=== PATIENT | male | born 1955 | race Caucasian/White ===

== ENCOUNTER 2017-06-02 07:27 | Emergency (ER) | payer SELFPAY ==
--- NOTE | 2017-06-02 07:44 | EDM.PDOC ---
ED HPI GENERAL MEDICAL PROBLEM - General Chief Complaint: Neurological Problem Stated Complaint: NUMBNESS; STROKE CODE Time Seen by Provider: 06/02/17 07:40 Source of Information: Reports: Patient History Limitations: Reports: No Limitations - History of Present Illness INITIAL COMMENTS - FREE TEXT/NARRATIVE: Patient is a 62-year-old gentleman who states that last night started complaining numbness in the left hand left feet progressively worsening apparently fell asleep and woke up with worsening symptoms was transported by private vehicle to the ER in [facility]. Initial evaluation noted drooping of the left side of the face which score him NIH score of 1 and this has not changed. Onset: Gradual Duration: Day(s):, Getting Worse Location: Reports: Face (Numbness around the lips), Upper Extremity, Left, Lower Extremity, Right Quality: Reports: Other (Numbness) Severity: Mild Improves with: Reports: None Worsens with: Reports: None Context: Reports: Other (Possible stroke:) Associated Symptoms: Reports: Headaches (On occasion no headaches now) Past Medical History Cardiovascular History: Reports: Afib Social & Family History - Tobacco Use Smoking Status *Q: Never Smoker ED ROS GENERAL - Review of Systems Review Of Systems: See Below Constitutional: Reports: Weakness, Decreased Appetite HEENT: Reports: Other (Perioral numbness decreased appetite for couple days) Respiratory: Reports: No Symptoms Cardiovascular: Reports: Palpitations, Other (History of atrial fibrillation) Endocrine: Reports: No Symptoms GI/Abdominal: Reports: Anorexia : Reports: No Symptoms Musculoskeletal: Reports: Other (Weakness negative drift) Skin: Reports: No Symptoms Neurological: Reports: Numbness (Perioral numbness left arm hand and foot) Psychiatric: Reports: No Symptoms Hematologic/Lymphatic: Reports: No Symptoms ( states he recently lost his Job has been lying in the sofa all day and drinks about a 5th of vodka a day.) ED EXAM, NEURO - Physical Exam Exam: See Below Exam Limited By: No Limitations General Appearance: Alert, WD/WN, Mild Distress Ears: Normal External Exam, Normal Canal, Hearing Grossly Normal, Normal TMs Nose: Normal Inspection, Normal Mucosa, No Blood Throat/Mouth: Other (Perioral numbness left side of mouth) Head Exam: Atraumatic, Normocephalic Neck: Normal Inspection, Supple, Non-Tender, Full Range of Motion Respiratory/Chest: No Respiratory Distress, Lungs Clear Cardiovascular: Tachycardia (130s to 150), Irregularly Irregular GI/Abdominal: Normal Bowel Sounds, Soft, Non-Tender, No Organomegaly, No Distention, No Abnormal Bruit, No Mass (Male) Exam: Deferred Rectal (Males) Exam: Deferred Neurological: Alert, Normal Dorsiflexion, Normal Plantar Flexion, Normal Gait, Oriented x 3, Other (Left facial droop) Back Exam: Normal Inspection, Full Range of Motion, NT Extremities: Normal Inspection, Normal Range of Motion, Non-Tender, No Pedal Edema, Normal Capillary Refill Psychiatric: Normal Affect, Normal Mood Skin Exam: Warm, Dry, Other (Small superficial ulceration midline below the umbilicus) Comments: states he recently lost his job has been lying in the sofa all day and drinks about a 5th of vodka a day.) Course - Vital Signs Text/Narrative:: Stroke who called CT obtained which reveal hypodensity within proximal to the mid bacillary artery likely due to arthrosclerotic plaque mild prominence of the remaining vermian folia consistent with volume loss of the vermis- no intracranial hemorrhage seen. Patient being transferred ACL[facility] to [facility] for further evaluation and treatment. - Orders/Labs/Meds Orders: Active Orders 24 hr Category Date Time Status Chest 1V Frontal [CR] Routine Exams 06/02/17 07:49 Taken Head wo Cont [CT] Routine Exams 06/02/17 07:25 Taken CK W CKMB [CHEM] Routine Lab 06/02/17 07:42 Received COMPREHENSIVE METABOLIC PN,CMP [CHEM] Routine Lab 06/02/17 07:42 Received D-DIMER QUANTITATIVE [COAG] Routine Lab 06/02/17 07:42 Received ETHANOL BLOOD MEDICAL [CHEM] Routine Lab 06/02/17 07:42 Received MAGNESIUM [CHEM] Routine Lab 06/02/17 07:42 Received PRO B-TYPE NATRIUR PEPT,BNPPRO [CHEM] Routine Lab 06/02/17 07:42 Received PROLACTIN [REF] Routine Lab 06/02/17 07:42 Received TROPONIN I [CHEM] Routine Lab 06/02/17 07:42 Received Labs: Laboratory Tests 06/02/17 06/02/17 Range/Units 07:42 07:42 WBC 3.9 L (4.0-10.2) K/uL RBC 4.31 L (4.33-5.41) M/uL Hgb 13.0 L (13.1-16.8) g/dL Hct 37.2 L (39.0-49.0) % MCV 86.3 (84.0-98.0) fL MCH 30.2 (28.2-33.3) pg MCHC 34.9 (31.7-36.0) g/dL RDW 15.3 H (11.2-14.1) % Plt Count 48 L* (150-350) K/uL Neut % (Auto) 49.5 (45.0-80.0) % Lymph % (Auto) 34.4 (10.0-50.0) % [place] % (Auto) 14.0 (2.0-14.0) % Eos % (Auto) 1.8 (0.0-5.0) % Baso % (Auto) 0.3 (0.0-2.0) % Neut # (Auto) 1.94 (1.40-7.00) K/uL Lymph # (Auto) 1.35 (0.50-3.50) K/uL [place] # (Auto) 0.55 (0.00-1.00) K/uL Eos # (Auto) 0.07 (0.00-0.50) K/uL Baso # (Auto) 0.01 (0.00-0.20) K/uL PT 31.4 H (9.8-11.7) SEC INR 2.9 APTT 35.7 H (22.1-29.8) SEC Departure - Departure Time of Disposition: 08:25 Disposition: DC/Tfer to Acute Hospital 02 Condition: Fair, Undetermined Clinical Impression: Stroke Qualifiers: CVA mechanism: unspecified Qualified Code(s): I63.9 - Cerebral infarction, unspecified - Discharge Information Forms: ED Department Discharge - My Orders Last 24 Hours: My Active Orders 06/02/17 07:25 Head wo Cont [CT] Routine 06/02/17 07:42 CK W CKMB [CHEM] Routine COMPREHENSIVE METABOLIC PN,CMP [CHEM] Routine D-DIMER QUANTITATIVE [COAG] Routine ETHANOL BLOOD MEDICAL [CHEM] Routine MAGNESIUM [CHEM] Routine PRO B-TYPE NATRIUR PEPT,BNPPRO [CHEM] Routine PROLACTIN [REF] Routine TROPONIN I [CHEM] Routine 06/02/17 07:49 Chest 1V Frontal [CR] Routine - Assessment/Plan Last 24 Hours: My Active Orders 06/02/17 07:25 Head wo Cont [CT] Routine 06/02/17 07:42 CK W CKMB [CHEM] Routine COMPREHENSIVE METABOLIC PN,CMP [CHEM] Routine D-DIMER QUANTITATIVE [COAG] Routine ETHANOL BLOOD MEDICAL [CHEM] Routine MAGNESIUM [CHEM] Routine PRO B-TYPE NATRIUR PEPT,BNPPRO [CHEM] Routine PROLACTIN [REF] Routine TROPONIN I [CHEM] Routine 06/02/17 07:49 Chest 1V Frontal [CR] Routine
[2017-06-02 08:22] LABS: CHLORIDE,CL 94 mmol/L (98-107); SODIUM,NA 135 mmol/L (136-145)
== END 2017-06-02 08:40 ==
LOC: LL.ED 07:27
DX: I63.9 Cerebral infarction, unspecified (principal)
CPT/HCPCS: 36000; 36415; 70450; 71045; 80053; 82550; 82553; 83735; 83880; 84146; 84484; 85025; 85379; 85610; 85730; 93005; 99291; G0480

== ENCOUNTER 2017-09-04 13:31 | Inpatient (IN) | payer MEDICAID ==
[2017-09-04 14:19] LABS: CHLORIDE,CL 99 mmol/L (98-107); SODIUM,NA 136 mmol/L (136-145)
--- NOTE | 2017-09-04 16:09 | EDM.PDOC ---
ED HPI GENERAL MEDICAL PROBLEM - General Chief Complaint: Gastrointestinal Problem Stated Complaint: Loose stool Time Seen by Provider: 09/04/17 13:50 Source of Information: Reports: Patient History Limitations: Reports: No Limitations - History of Present Illness INITIAL COMMENTS - FREE TEXT/NARRATIVE: Patient is a 62-year-old who was brought in for evaluation by the secondary to loose stools diarrhea and generalized weakness patient states that he's been sick for about 3 weeks he has been exposed to his girlfriend who has history of C. difficile Onset: Gradual Duration: Week(s):, Getting Worse Location: Reports: Abdomen Quality: Reports: Ache, Other (Cramping) Severity: Moderate Improves with: Reports: None Worsens with: Reports: Eating, Other (Unable to tolerate any food) Context: Reports: Other (Infection) Associated Symptoms: Reports: Weakness, Other (Diarrhea) - Related Data Allergies Allergy/AdvReac Type Severity Reaction Status Date / Time No Known Allergies Allergy Verified 09/04/17 13:33 Home Meds: Home Meds Multivitamin [Daily Multiple Vitamin] 1 tab PO DAILY 08/24/13 [History] Diltiazem [Cardizem CD] 360 mg PO DAILY 09/04/17 [History] Warfarin [Coumadin] 5 mg PO DAILY 09/04/17 [History] Past Medical History Cardiovascular History: Reports: Afib Social & Family History - Tobacco Use Smoking Status *Q: Former Smoker Years of Tobacco use: 10 Packs/Tins Daily: 1 Used Tobacco, but Quit: Yes Month/Year Tobacco Last Used: 1989 Second Hand Smoke Exposure: No - Alcohol Use Days Per Week of Alcohol Use: 7 Number of Drinks Per Day: 2 Total Drinks Per Week: 14 - Recreational Drug Use Recreational Drug Use: No ED ROS GENERAL - Review of Systems Review Of Systems: See Below Constitutional: Reports: Other (Diary) HEENT: Reports: No Symptoms Respiratory: Reports: No Symptoms Cardiovascular: Reports: No Symptoms Endocrine: Reports: No Symptoms GI/Abdominal: Reports: Abdominal Pain, Diarrhea, Decreased Appetite : Reports: No Symptoms Musculoskeletal: Reports: No Symptoms Skin: Reports: No Symptoms Neurological: Reports: No Symptoms Psychiatric: Reports: No Symptoms Hematologic/Lymphatic: Reports: No Symptoms Immunologic: Reports: No Symptoms ED EXAM, GI/ABD - Physical Exam Exam: See Below Exam Limited By: No Limitations General Appearance: Alert, Moderate Distress Ears: Normal External Exam, Normal Canal, Hearing Grossly Normal, Normal TMs Nose: Normal Inspection, Normal Mucosa, No Blood Throat/Mouth: Normal Inspection, Normal Lips, Normal Teeth, Normal Gums, Normal Oropharynx, Normal Voice, No Airway Compromise Head: Atraumatic, Normocephalic Neck: Normal Inspection, Supple, Non-Tender, Full Range of Motion Respiratory/Chest: No Respiratory Distress, Lungs Clear, Normal Breath Sounds, No Accessory Muscle Use, Chest Non-Tender Cardiovascular: Normal Peripheral Pulses, Regular Rate, Rhythm, No Edema, No Gallop, No JVD, No Murmur, No Rub GI/Abdominal Exam: Normal Bowel Sounds, Soft, Non-Tender, No Organomegaly, No Distention, No Abnormal Bruit, No Mass, Pelvis Stable (Male) Exam: Deferred Rectal (Males) Exam: Deferred Back Exam: Normal Inspection, Full Range of Motion, NT Extremities: Normal Inspection, Normal Range of Motion, Non-Tender, Normal Capillary Refill, No Pedal Edema Neurological: Alert, Oriented, CN II-XII Intact, Normal Cognition, Normal Gait, Normal Reflexes, No Motor/Sensory Deficits Psychiatric: Normal Affect, Normal Mood Course - Vital Signs Last Recorded V/S: Last Vital Signs Temp 98.3 F 09/04/17 13:37 Pulse 86 09/04/17 13:37 Resp 18 09/04/17 13:37 BP 158/105 H 09/04/17 13:37 Pulse Ox 97 09/04/17 13:37 - Orders/Labs/Meds Orders: Active Orders 24 hr Category Date Time Status STOOL CULTURE/SHIGA TOXIN [MREF] Stat Lab 09/04/17 13:58 Ordered Labs: Laboratory Tests 09/04/17 09/04/17 Range/Units 14:03 14:03 WBC 3.6 L (4.0-10.2) K/uL RBC 4.43 (4.33-5.41) M/uL Hgb 13.3 (13.1-16.8) g/dL Hct 38.2 L (39.0-49.0) % MCV 86.2 (84.0-98.0) fL MCH 30.0 (28.2-33.3) pg MCHC 34.8 (31.7-36.0) g/dL RDW 15.1 H (11.2-14.1) % Plt Count 65 L (150-350) K/uL Neut % (Auto) 32.2 L (45.0-80.0) % Lymph % (Auto) 52.4 H (10.0-50.0) % [place] % (Auto) 12.6 (2.0-14.0) % Eos % (Auto) 2.2 (0.0-5.0) % Baso % (Auto) 0.6 (0.0-2.0) % Neut # (Auto) 1.15 L (1.40-7.00) K/uL Lymph # (Auto) 1.87 (0.50-3.50) K/uL [place] # (Auto) 0.45 (0.00-1.00) K/uL Eos # (Auto) 0.08 (0.00-0.50) K/uL Baso # (Auto) 0.02 (0.00-0.20) K/uL Sodium 136 (136-145) mmol/L Potassium 3.9 (3.5-5.1) mmol/L Chloride 99 (98-107) mmol/L Carbon Dioxide 23.9 (21.0-32.0) mmol/L BUN 5 L (7-18) mg/dL Creatinine 0.69 (0.51-1.17) mg/dL Est Cr Clr Drug Dosing 113.89 mL/min Estimated GFR (MDRD) > 60 mL/min Glucose 113 H (74-106) mg/dL Calcium 8.2 L (8.5-10.1) mg/dL Total Bilirubin 0.6 (0.2-1.0) mg/dL AST 117 H (15-37) U/L ALT 99 H (12-78) U/L Alkaline Phosphatase 121 H (46-116) IU/L Total Protein 8.4 H (6.4-8.2) g/dL Albumin 3.6 (3.4-5.0) g/dL Departure - Departure Time of Disposition: 16:17 Disposition: Admitted As Inpatient 65 Clinical Impression: Gastroenteritis, Gastroenteritis due to Clostridium difficile - Discharge Information Referrals: Arden Hernandez PA [Primary Care Provider] - - Problem List & Annotations (1) Gastroenteritis due to Clostridium difficile SNOMED Code(s): 319958819, 855957939 Code(s): A04.72 - ENTEROCOLITIS D/T CLOSTRIDIUM DIFFICILE, NOT SPCF RECUR Status: Acute Current Visit: Yes Annotation/Comment:: Patient was exposed to C. difficile by girlfriend - Problem List Review Problem List Initiated/Reviewed/Updated: Yes - My Orders Last 24 Hours: My Active Orders 09/04/17 13:58 STOOL CULTURE/SHIGA TOXIN [MREF] Stat - Assessment/Plan Last 24 Hours: My Active Orders 09/04/17 13:58 STOOL CULTURE/SHIGA TOXIN [MREF] Stat Plan: Patient has significant diarrhea for 3 weeks unable to keep anything down he says he eats and ankles exposure to C. difficile will treat and send him home
[2017-09-04] MEDS ORDERED: Ondansetron 4 MG/2 ML SDV IVPUSH PRN (17:37)
[2017-09-04] MEDS ORDERED: Sodium Chloride 0.9% 10 ML Syringe FLUSH PRN (17:37)
[2017-09-04] MEDS: Sodium Chloride 0.9% 1,000 ML IV SCH (18:25)
[2017-09-04] MEDS: metroNIDAZOLE/Normal Saline 500 MG in Premix Bag 1 BAG IV SCH (18:31)
[2017-09-04] MEDS ORDERED: LORazepam 2 MG/ML SDV IVPUSH PRN (18:37)
[2017-09-04 19:10] LABS: CHLORIDE,CL 100 mmol/L (98-107); SODIUM,NA 136 mmol/L (136-145)
[2017-09-04] MEDS: Thiamine 100 MG Tab PO SCH (19:26)
[2017-09-04] MEDS: Diltiazem 180 MG Cap.CD PO SCH (19:27)
[2017-09-04] MEDS: Niacin 500 MG Tab PO SCH (19:27)
[2017-09-04] MEDS: Warfarin 5 MG Tab PO SCH (20:36)
[2017-09-04] MEDS ORDERED: diphenhydrAMINE 50 MG/ML SDV IVPUSH ONE (20:42)
[2017-09-04] MEDS ORDERED: diphenhydrAMINE 50 MG/ML SDV IVPUSH PRN (21:26)
[2017-09-05] MEDS: metroNIDAZOLE/Normal Saline 500 MG in Premix Bag 1 BAG IV SCH ×3 (01:22→17:33)
[2017-09-05] MEDS: Sodium Chloride 0.9% 1,000 ML IV SCH ×2 (03:54→15:06)
[2017-09-05] MEDS: LORazepam 1 MG Tab PO PRN ×3 (04:30→20:18)
[2017-09-05] MEDS ORDERED: Warfarin 5 MG Tab PO SCH (08:00)
[2017-09-05] MEDS ORDERED: Diltiazem 180 MG Cap.CD PO SCH (08:00)
[2017-09-05] MEDS: Multivitamin Tab PO SCH (08:08)
[2017-09-05] MEDS: Diltiazem 180 MG Cap.CD PO SCH (08:08)
[2017-09-05] MEDS: Warfarin 5 MG Tab PO SCH (17:33)
[2017-09-05] MEDS ORDERED: Atropine/Diphenoxylate 0.025-2.5 MG Tab PO PRN (17:41)
[2017-09-05] MEDS ORDERED: LORazepam 0.5 MG Tab PO PRN (17:43)
--- NOTE | 2017-09-05 17:44 | PCM.PN ---
- General Info Date of Service: 09/05/17 Functional Status: Reports: Ambulating - Review of Systems General: Reports: Weakness HEENT: Reports: No Symptoms Pulmonary: Reports: No Symptoms Cardiovascular: Reports: No Symptoms Gastrointestinal: Reports: Diarrhea Genitourinary: Reports: No Symptoms Musculoskeletal: Reports: No Symptoms Skin: Reports: No Symptoms Neurological: Reports: No Symptoms Psychiatric: Reports: No Symptoms - Patient Data Vitals - Most Recent: Last Vital Signs Temp 98.2 F 09/05/17 15:36 Pulse 72 09/05/17 15:36 Resp 12 09/05/17 15:36 BP 134/56 L 09/05/17 15:36 Pulse Ox 100 09/05/17 15:36 Weight - Most Recent: 257 lb I&O - Last 24 Hours: Intake & Output 09/05/17 09/05/17 09/05/17 06:59 14:59 22:59 Intake Total 927 150 990 Output Total 200 720 Balance 727 -570 990 Lab Results Last 24 Hours: Laboratory Results - last 24 hr 09/04/17 09/04/17 09/05/17 Range/Units 18:45 18:45 07:37 WBC 2.8 L (4.0-10.2) K/uL RBC 4.08 L (4.33-5.41) M/uL Hgb 12.4 L (13.1-16.8) g/dL Hct 35.7 L (39.0-49.0) % MCV 87.5 (84.0-98.0) fL MCH 30.4 (28.2-33.3) pg MCHC 34.7 (31.7-36.0) g/dL RDW 15.4 H (11.2-14.1) % Plt Count 45 L* (150-350) K/uL Neut % (Auto) 41.5 L (45.0-80.0) % Lymph % (Auto) 41.9 (10.0-50.0) % [place] % (Auto) 15.1 H (2.0-14.0) % Eos % (Auto) 1.1 (0.0-5.0) % Baso % (Auto) 0.4 (0.0-2.0) % Neut # (Auto) 1.16 L (1.40-7.00) K/uL Lymph # (Auto) 1.17 (0.50-3.50) K/uL [place] # (Auto) 0.42 (0.00-1.00) K/uL Eos # (Auto) 0.03 (0.00-0.50) K/uL Baso # (Auto) 0.01 (0.00-0.20) K/uL PT 15.7 H D (9.8-11.7) SEC INR 1.4 Sodium 136 (136-145) mmol/L Potassium 4.0 (3.5-5.1) mmol/L Chloride 100 (98-107) mmol/L Carbon Dioxide 26.4 (21.0-32.0) mmol/L BUN 5 L (7-18) mg/dL Creatinine 0.74 (0.51-1.17) mg/dL Est Cr Clr Drug Dosing 118.80 mL/min Estimated GFR (MDRD) > 60 mL/min Glucose 116 H (74-106) mg/dL Calcium 8.2 L (8.5-10.1) mg/dL Med Orders - Current: Current Medications Diltiazem HCl (Cardizem Cd) 360 mg PO DAILY [facility] Last Admin: 09/05/17 08:08 Dose: 360 mg Diphenhydramine HCl (Benadryl) 50 mg IVPUSH ONETIME PRN PRN Reason: allergic Reaction Metronidazole 500 mg/ Premix 100 mls @ 100 mls/hr IV Q8H [facility] Last Admin: 09/05/17 17:33 Dose: 100 mls/hr Sodium Chloride (Normal Saline) 1,000 mls @ 100 mls/hr IV ASDIRECTED [facility] Last Admin: 09/05/17 15:06 Dose: 100 mls/hr Lorazepam (Ativan) 1 mg PO Q6H PRN PRN Reason: Alcohol Withdrawl/Anxiety Last Admin: 09/05/17 12:10 Dose: 1 mg Multivitamins/Minerals/Vitamin C (Tab-A-Darion) 1 tab PO DAILY [facility] Last Admin: 09/05/17 08:08 Dose: 1 tab Niacin (Niacin) 500 mg PO BEDTIME [facility] Last Admin: 09/04/17 19:27 Dose: 500 mg Ondansetron HCl (Zofran) 4 mg IVPUSH Q4H PRN PRN Reason: Nausea/Vomiting Sodium Chloride (Saline Flush) 10 ml FLUSH ASDIRECTED PRN PRN Reason: Keep Vein Open Last Admin: 09/04/17 21:23 Dose: 10 ml Thiamine HCl (Vitamin B-1) 100 mg PO BEDTIME [facility] Last Admin: 09/04/17 19:26 Dose: 100 mg Warfarin Sodium (Coumadin) 5 mg PO DAILY@1800 [facility] Last Admin: 09/05/17 17:33 Dose: 5 mg Discontinued Medications Diltiazem HCl (Cardizem Cd) 360 mg PO DAILY [facility] Diphenhydramine HCl (Benadryl) 50 mg IVPUSH ONETIME ONE Stop: 09/04/17 20:43 Last Admin: 09/04/17 20:40 Dose: 50 mg Lorazepam (Ativan) 1 mg IVPUSH Q6H PRN PRN Reason: Alcohol Withdrawl/Anxiety Last Admin: 09/04/17 21:23 Dose: 1 mg Warfarin Sodium (Coumadin) 5 mg PO DAILY [facility] - Exam General: Alert, Oriented HEENT: Pupils Equal, Pupils Reactive, EOMI, Mucous Membr. Moist/[place] Neck: Supple Lungs: Clear to Auscultation, Normal Respiratory Effort Cardiovascular: Regular Rate, Regular Rhythm GI/Abdominal Exam: Abnormal Bowel Sounds (Hyperactive) (Male) Exam: Deferred Back Exam: Normal Inspection, Full Range of Motion Extremities: Normal Inspection, Normal Range of Motion, Non-Tender, No Pedal Edema, Normal Capillary Refill Skin: Warm, Dry, Intact Wound/Incisions: Healing Well Neurological: No New Focal Deficit Psy/Mental Status: Alert, Normal Affect, Normal Mood - Problem List & Annotations (1) Gastroenteritis due to Clostridium difficile SNOMED Code(s): 531636870, 063631306 Code(s): A04.72 - ENTEROCOLITIS D/T CLOSTRIDIUM DIFFICILE, NOT SPCF RECUR Status: Acute Current Visit: Yes Annotation/Comment:: Patient was exposed to C. difficile by girlfriend (2) Alcohol withdrawal SNOMED Code(s): 955942187 Code(s): F10.239 - ALCOHOL DEPENDENCE WITH WITHDRAWAL, UNSPECIFIED Status: Acute Current Visit: Yes (3) Alcohol withdrawal delirium SNOMED Code(s): 8550293 Code(s): F10.231 - ALCOHOL DEPENDENCE WITH WITHDRAWAL DELIRIUM Status: Acute Current Visit: Yes Annotation/Comment:: Patient has shown signs of alcohol withdrawal with shakes vasoactive hives patient was started on Ativan which control symptoms - Problem List Review Problem List Initiated/Reviewed/Updated: Yes - My Orders Last 24 Hours: My Active Orders 09/04/17 17:37 Patient Status [ADT] Routine Bedrest Bathroom Privileges [RC] ASDIRECTED Height and Weight [RC] DAILY May Shower [RC] ASDIRECTED Oxygen Therapy [RC] PRN Up ad Heather [RC] ASDIRECTED Up to Chair [RC] ASDIRECTED VTE/DVT Education [RC] PER UNIT ROUTINE Vital Signs [RC] Q4HR Ondansetron [Zofran] 4 mg IVPUSH Q4H PRN Sodium Chloride 0.9% [Saline Flush] 10 ml FLUSH ASDIRECTED PRN Anticoagulation Contraindications VTE [AST] Per Unit Routine Saline Lock Insert [OM.PC] Routine Resuscitation Status Routine 09/04/17 17:43 Intake and Output [RC] QSHIFT Pulse Oximetry [RC] PRN 09/04/17 18:00 Sodium Chloride 0.9% [Normal Saline] 1,000 ml IV ASDIRECTED metroNIDAZOLE/Normal Saline [Flagyl 500 MG in NS 100 ML] 500 mg Premix Bag 1 bag IV Q8H 09/04/17 19:24 Warfarin [Coumadin] 5 mg PO DAILY@1800 09/04/17 20:00 Diltiazem [Cardizem CD] 360 mg PO DAILY Niacin 500 mg PO BEDTIME Thiamine [Vitamin B-1] 100 mg PO BEDTIME 09/04/17 21:26 diphenhydrAMINE [Benadryl] 50 mg IVPUSH ONETIME PRN 09/04/17 23:47 LORazepam [Ativan] 1 mg PO Q6H PRN 09/05/17 08:00 Multivitamins [Tab-A-Darion] 1 tab PO DAILY 09/05/17 Dinner Nothing per Oral Now Diet [DIET] Regular Diet [DIET] - Plan Plan:: Patient will continue on Ativan decreased doses. And continue monitoring
[2017-09-05] MEDS: Niacin 500 MG Tab PO SCH (19:20)
[2017-09-05] MEDS: Thiamine 100 MG Tab PO SCH (19:20)
[2017-09-06] MEDS: Sodium Chloride 0.9% 1,000 ML IV SCH ×2 (02:55→14:59)
[2017-09-06] MEDS: metroNIDAZOLE/Normal Saline 500 MG in Premix Bag 1 BAG IV SCH ×2 (02:55→09:06)
[2017-09-06] MEDS ORDERED: Acetaminophen 325 MG Tab PO PRN (03:01)
[2017-09-06 07:35] LABS: CHLORIDE,CL 102 mmol/L (98-107); SODIUM,NA 135 mmol/L (136-145)
[2017-09-06] MEDS: Diltiazem 180 MG Cap.CD PO SCH (09:04)
[2017-09-06] MEDS: Multivitamin Tab PO SCH (09:05)
[2017-09-06] MEDS: diphenhydrAMINE 25 MG Cap PO PRN ×2 (12:53→21:04)
--- NOTE | 2017-09-06 15:41 | PCM.PN ---
- General Info Date of Service: 09/06/17 Admission Dx/Problem (Free Text): Suspected C. difficile colitis Functional Status: Reports: Pain Controlled, Tolerating Diet, Ambulating, Urinating. Denies: New Symptoms, Incentive Spirometry Pain Score: 0 - Review of Systems General: Reports: Fever (Occasional persistent intermittent low-grade fever.). Denies: Weakness, Fatigue, Malaise, Chills, Night Sweats, Appetite (Good) HEENT: Reports: Post Nasal Drip, Sinus Congestion, Rhinitis. Denies: Ear Pain, Eye Pain, Headaches, Sore Throat, Visual Changes Pulmonary: Reports: No Symptoms. Denies: Shortness of Breath, Pleuritic Chest Pain, Cough, Sputum, Wheezing Cardiovascular: Reports: No Symptoms. Denies: Chest Pain, Palpitations, Dyspnea on Exertion, Orthopnea, PND, Edema, Lightheadedness Gastrointestinal: Denies: Abdominal Pain, Constipation, Decreased Appetite, Diarrhea (Persistent occasional loose stools with last bowel movement yesterday by his history), Difficulty Swallowing, Flatus, Hematochezia, Melena, Nausea, Vomiting Genitourinary: Reports: No Symptoms. Denies: Dysuria, Frequency, Burning, Pain , Urgency, Incontinence, Hematuria, Retention, Flank Pain Musculoskeletal: Reports: No Symptoms. Denies: Neck Pain, Shoulder Pain, Arm Pain, Back Pain, Leg Pain Skin: Reports: No Symptoms. Denies: Diaphoresis, Bruising Neurological: Reports: No Symptoms. Denies: Confusion, Dizziness, Headache, Numbness, Paresthesia, Tingling, Weakness Psychiatric: Reports: No Symptoms. Denies: Confusion, Depression, Anxiety, Agitation, Cravings, Hallucinations - Patient Data Vitals - Most Recent: Last Vital Signs Temp 36.8 C 09/06/17 12:45 Pulse 79 09/06/17 12:45 Resp 15 09/06/17 12:45 BP 114/70 09/06/17 12:45 Pulse Ox 96 09/06/17 12:45 Vital Signs - 24 hr 09/05/17 09/05/17 09/05/17 17:43 20:00 23:54 Temperature [ Oral] Temperature [ 37.2 C 36.9 C Temporal] Pulse, 64 78 Peripheral [ Right Pulse Oximetry] Respiratory 12 18 Rate Blood Pressure 124/83 [Left Upper Arm ] Blood Pressure 133/65 [Right Upper Arm] O2 Sat by Pulse 98 97 97 Oximetry 09/06/17 09/06/17 09/06/17 02:58 08:00 12:45 Temperature [ 37.1 C 36.8 C Oral] Temperature [ 37.2 C Temporal] Pulse, 80 61 79 Peripheral [ Right Pulse Oximetry] Respiratory 18 18 15 Rate Blood Pressure [Left Upper Arm ] Blood Pressure 134/68 146/78 H 114/70 [Right Upper Arm] O2 Sat by Pulse 97 97 96 Oximetry Weight - Most Recent: 115.212 kg I&O - Last 24 Hours: Intake & Output 09/06/17 09/06/17 09/06/17 06:59 14:59 22:59 Intake Total 885 1340 Balance 885 1340 Imaging Impressions - Last 24 Hours: None Lab Results Last 24 Hours: Laboratory Results - last 24 hr 09/05/17 09/06/17 Range/Units 07:15 07:15 WBC 2.7 L (4.0-10.2) K/uL RBC 3.90 L (4.33-5.41) M/uL Hgb 11.8 L D (13.1-16.8) g/dL Hct 34.5 L (39.0-49.0) % MCV 88.5 (84.0-98.0) fL MCH 30.3 (28.2-33.3) pg MCHC 34.2 (31.7-36.0) g/dL RDW 15.0 H (11.2-14.1) % Plt Count 32 L* (150-350) K/uL Neut % (Auto) 49.8 (45.0-80.0) % Lymph % (Auto) 33.8 (10.0-50.0) % [place] % (Auto) 13.0 (2.0-14.0) % Eos % (Auto) 3.0 (0.0-5.0) % Baso % (Auto) 0.4 (0.0-2.0) % Neut # (Auto) 1.34 L (1.40-7.00) K/uL Lymph # (Auto) 0.91 (0.50-3.50) K/uL [place] # (Auto) 0.35 (0.00-1.00) K/uL Eos # (Auto) 0.08 (0.00-0.50) K/uL Baso # (Auto) 0.01 (0.00-0.20) K/uL Sodium 135 L (136-145) mmol/L Potassium 3.6 (3.5-5.1) mmol/L Chloride 102 (98-107) mmol/L Carbon Dioxide 24.6 (21.0-32.0) mmol/L BUN 6 L (7-18) mg/dL Creatinine 0.61 (0.51-1.17) mg/dL Est Cr Clr Drug Dosing 144.11 mL/min Estimated GFR (MDRD) > 60 mL/min Glucose 98 (74-106) mg/dL Calcium 8.4 L (8.5-10.1) mg/dL Jeff Results Last 24 Hours: Stool specimen for C. difficile antigen still pending. Med Orders - Current: Current Medications Acetaminophen (Tylenol) 650 mg PO Q4H PRN PRN Reason: fever/pain Last Admin: 09/06/17 03:19 Dose: 650 mg Diltiazem HCl (Cardizem Cd) 360 mg PO DAILY [facility] Last Admin: 09/06/17 09:04 Dose: 360 mg Diphenhydramine HCl (Benadryl) 50 mg IVPUSH ONETIME PRN PRN Reason: allergic Reaction Diphenhydramine HCl (Benadryl) 50 mg PO Q4H PRN PRN Reason: Allergies Last Admin: 09/06/17 12:53 Dose: 25 mg Diphenoxylate HCl/Atropine (Lomotil 0.025-2.5 Mg) 1 tab PO QID PRN PRN Reason: Diarrhea Metronidazole 500 mg/ Premix 100 mls @ 100 mls/hr IV Q8H [facility] Last Admin: 09/06/17 09:06 Dose: 100 mls/hr Sodium Chloride (Normal Saline) 1,000 mls @ 100 mls/hr IV ASDIRECTED [facility] Last Admin: 09/06/17 14:59 Dose: 100 mls/hr Lorazepam (Ativan) 1 mg PO Q6H PRN PRN Reason: Alcohol Withdrawl/Anxiety Last Admin: 09/05/17 20:18 Dose: 1 mg Lorazepam (Ativan) 0.5 mg PO Q6H PRN PRN Reason: Delirium tremors Multivitamins/Minerals/Vitamin C (Tab-A-Darion) 1 tab PO DAILY [facility] Last Admin: 09/06/17 09:05 Dose: 1 tab Niacin (Niacin) 500 mg PO BEDTIME [facility] Last Admin: 09/05/17 19:20 Dose: 500 mg Ondansetron HCl (Zofran) 4 mg IVPUSH Q4H PRN PRN Reason: Nausea/Vomiting Sodium Chloride (Saline Flush) 10 ml FLUSH ASDIRECTED PRN PRN Reason: Keep Vein Open Last Admin: 09/04/17 21:23 Dose: 10 ml Thiamine HCl (Vitamin B-1) 100 mg PO BEDTIME [facility] Last Admin: 09/05/17 19:20 Dose: 100 mg Warfarin Sodium (Coumadin) 5 mg PO DAILY@1800 [facility] Last Admin: 09/05/17 17:33 Dose: 5 mg Discontinued Medications Diltiazem HCl (Cardizem Cd) 360 mg PO DAILY [facility] Diphenhydramine HCl (Benadryl) 50 mg IVPUSH ONETIME ONE Stop: 09/04/17 20:43 Last Admin: 09/04/17 20:40 Dose: 50 mg Lorazepam (Ativan) 1 mg IVPUSH Q6H PRN PRN Reason: Alcohol Withdrawl/Anxiety Last Admin: 09/04/17 21:23 Dose: 1 mg Warfarin Sodium (Coumadin) 5 mg PO DAILY [facility] - Exam Quality Assessment: DVT Prophylaxis. No: Supplemental Oxygen, Central Line/PICC , Urine Catheter, Skin Breakdown, Restraints General: Alert, Oriented, Cooperative, No Acute Distress HEENT: Pupils Equal, Pupils Reactive, EOMI, Mucous Membr. Moist/[place], Other ( Moderate bilateral clinical nasal drainage) Neck: Supple, Trachea Midline, No JVD, No Thyromegaly. No: Lymphadenopathy Lungs: Clear to Auscultation, Normal Respiratory Effort. No: Rub, Wheezing Cardiovascular: Regular Rate, Regular Rhythm, No Murmurs. No: Gallops, Rubs GI/Abdominal Exam: Normal Bowel Sounds, Soft, Non-Tender, No Organomegaly, No Distention, No Abnormal Bruit, No Mass. No: Guarding (Male) Exam: Deferred Back Exam: Normal Inspection, Full Range of Motion. No: CVA Tenderness (L), CVA Tenderness (R), Muscle Spasm Extremities: Normal Inspection, Normal Range of Motion, Non-Tender, No Pedal Edema, Normal Capillary Refill. No: Chaim's Sign Peripheral Pulses: 2+: Radial (L), Radial (R), Dorsalis Pedis (R) Skin: Warm, Dry, Intact. No: Ecchymosis Neurological: No New Focal Deficit Psy/Mental Status: Alert, Normal Affect, Normal Mood. No: Agitated, Hallucinations, Withdrawal Symptoms - Problem List & Annotations (1) Gastroenteritis SNOMED Code(s): 45474596 Code(s): K52.9 - NONINFECTIVE GASTROENTERITIS AND COLITIS, UNSPECIFIED Status: Acute Priority: High Current Visit: Yes Annotation/Comment:: Possible progressive C. difficile colitis and enterocolitis during the last 3 weeks with previous exposure from his girlfriend. Diarrhea has significantly improved with current IV Flagyl therapy, which will be changed to oral regimen today. Stool specimen collected yesterday with results pending. Patient's home should be thoroughly disinfected against C. difficile, including all surfaces, clothing, etc.. Occasional intermittent low-grade fever persistent leukocytosis. Blood Work to be repeated tomorrow. Continue to observe closely. (2) Alcohol withdrawal SNOMED Code(s): 379967095 Code(s): F10.239 - ALCOHOL DEPENDENCE WITH WITHDRAWAL, UNSPECIFIED Status: Chronic Priority: Medium Current Visit: Yes Qualifiers: Complication of substance-induced condition: uncomplicated Qualified Code(s ): F10.230 - Alcohol dependence with withdrawal, uncomplicated Annotation/Comment:: History of possible alcohol abuse and withdrawals with patient currently on DT prophylaxis with no evidence of DTs during this hospitalization. Continue to observe closely. (3) Afib, Atrial fibrillation SNOMED Code(s): 91908179 Code(s): I48.91 - UNSPECIFIED ATRIAL FIBRILLATION Status: Chronic Priority: Medium Current Visit: Yes Annotation/Comment:: Current Coumadin therapy. INR to be repeated tomorrow secondary to Flagyl therapy. No chest pain or anginal type symptoms. (4) Hepatitis C carrier SNOMED Code(s): 492984775 Code(s): Z22.52 - Status: Chronic Priority: Medium Current Visit: Yes Annotation/Comment:: Continue hepatitis C precautions. (5) Hyponatremia SNOMED Code(s): 46747156 Code(s): E87.1 - HYPO-OSMOLALITY AND HYPONATREMIA Status: Acute Priority : Medium Current Visit: Yes Onset Date: 09/06/17 Annotation/Comment:: Mild hyponatremia. Observe for now. Repeat blood work in the a.m. (6) Anemia SNOMED Code(s): 366558309 Code(s): D64.9 - ANEMIA, UNSPECIFIED Status: Acute Priority: Medium Current Visit: Yes Qualifiers: Anemia type: unspecified type Qualified Code(s): D64.9 - Anemia, unspecified Annotation/Comment:: TIBC panel, vitamin B 12 level, and folic acid level with blood work tomorrow. Note current leukopenia possibly secondary to infection. Further workup depending on his clinical course including bone needle aspiration biopsy, etc. (7) Hypertension SNOMED Code(s): 59436641 Code(s): I10 - ESSENTIAL (PRIMARY) HYPERTENSION Status: Chronic Priority : Medium Current Visit: Yes Qualifiers: Hypertension type: essential hypertension Qualified Code(s): I10 - Essential (primary) hypertension Annotation/Comment:: Blood pressures stable during this hospitalization. (8) Hyperlipidemia SNOMED Code(s): 25138903 Code(s): E78.5 - HYPERLIPIDEMIA, UNSPECIFIED Status: Chronic Priority: Medium Current Visit: Yes Qualifiers: Hyperlipidemia type: unspecified Qualified Code(s): E78.5 - Hyperlipidemia , unspecified Annotation/Comment:: Not Currently under therapy. Note previous hepatitis C as above. Continue to observe closely by his regular provider. (9) Allergic rhinitis SNOMED Code(s): 85461069 Code(s): J30.9 - ALLERGIC RHINITIS, UNSPECIFIED Status: Chronic Priority : High Current Visit: Yes Qualifiers: Allergic rhinitis trigger: unspecified Allergic rhinitis seasonality: unspecified Qualified Code(s): J30.9 - Allergic rhinitis, unspecified Annotation/Comment:: Exacerbation of his allergic rhinitis. He has tried multiple medications in the past with Benadryl the only medication, which seems to be effective. Benadryl reinitiated today. No indication for further antibiotic therapy. - Problem List Review Problem List Initiated/Reviewed/Updated: Yes - My Orders Last 24 Hours: My Active Orders 09/06/17 10:38 OCCULT BLOOD DIAGNOSTIC [OP] Routine 09/06/17 11:00 diphenhydrAMINE [Benadryl] 50 mg PO Q4H PRN 09/07/17 05:11 CBC WITH AUTO DIFF [HEME] Routine COMPREHENSIVE METABOLIC PN,CMP [CHEM] Routine FOLIC ACID [CHEM] Routine INR,PT,PROTHROMBIN TIME [COAG] Routine IRON/TIBC [CHEM] Routine PTT,PARTIAL THROMBOPLSTIN TIME [COAG] Routine VITAMIN B12 [CHEM] Routine - Assessment Assessment:: As above - Plan Plan:: As above. Extensive precautions were given to the patient, who is in agreement with the treatment plan. Dr. Victoria resumes care in the a.m. Probable hospital discharge within the next 1?2 days.
[2017-09-06] MEDS: metroNIDAZOLE 500 MG Tab PO SCH (17:09)
[2017-09-06] MEDS: Warfarin 5 MG Tab PO SCH (17:09)
[2017-09-06] MEDS: Niacin 500 MG Tab PO SCH (19:21)
[2017-09-06] MEDS: Thiamine 100 MG Tab PO SCH (19:21)
[2017-09-06] MEDS: LORazepam 1 MG Tab PO PRN (19:26)
[2017-09-07] MEDS: Sodium Chloride 0.9% 1,000 ML IV SCH (00:58)
[2017-09-07] MEDS: metroNIDAZOLE 500 MG Tab PO SCH ×2 (01:01→08:59)
[2017-09-07] MEDS: LORazepam 1 MG Tab PO PRN (01:03)
[2017-09-07 08:23] LABS: CHLORIDE,CL 102 mmol/L (98-107); SODIUM,NA 136 mmol/L (136-145)
[2017-09-07] MEDS: Multivitamin Tab PO SCH (08:52)
[2017-09-07] MEDS: Diltiazem 180 MG Cap.CD PO SCH (08:52)
--- NOTE | 2017-09-07 09:38 | PCM.PN ---
- General Info Date of Service: 09/07/17 Admission Dx/Problem (Free Text): Suspected C. difficile colitis Functional Status: Reports: Other (Diarrhea, alcohol abuse) - Review of Systems General: Reports: Weakness, Fatigue HEENT: Reports: No Symptoms Pulmonary: Reports: No Symptoms Cardiovascular: Reports: No Symptoms Gastrointestinal: Reports: Diarrhea Genitourinary: Reports: No Symptoms Musculoskeletal: Reports: No Symptoms Skin: Reports: No Symptoms Neurological: Reports: Other (Delirium tremors) Psychiatric: Reports: Anxiety (Secondary to delirium tremors) - Patient Data Vitals - Most Recent: Last Vital Signs Temp 98.5 F 09/07/17 06:35 Pulse 78 09/07/17 06:35 Resp 13 09/07/17 06:35 BP 133/75 09/07/17 06:35 Pulse Ox 98 09/07/17 06:35 Weight - Most Recent: 254 lb I&O - Last 24 Hours: Intake & Output 09/06/17 09/07/17 09/07/17 22:59 06:59 14:59 Intake Total 2057 972 Output Total 450 Balance 1607 972 Lab Results Last 24 Hours: Laboratory Results - last 24 hr 09/07/17 09/07/17 09/07/17 Range/Units 07:15 07:15 07:15 WBC 4.2 (4.0-10.2) K/uL RBC 3.87 L (4.33-5.41) M/uL Hgb 11.7 L (13.1-16.8) g/dL Hct 34.6 L (39.0-49.0) % MCV 89.4 (84.0-98.0) fL MCH 30.2 (28.2-33.3) pg MCHC 33.8 (31.7-36.0) g/dL RDW 15.0 H (11.2-14.1) % Plt Count 32 L* (150-350) K/uL Neut % (Auto) 60.8 (45.0-80.0) % Lymph % (Auto) 25.6 (10.0-50.0) % [place] % (Auto) 11.0 (2.0-14.0) % Eos % (Auto) 2.4 (0.0-5.0) % Baso % (Auto) 0.2 (0.0-2.0) % Neut # (Auto) 2.54 (1.40-7.00) K/uL Lymph # (Auto) 1.07 (0.50-3.50) K/uL [place] # (Auto) 0.46 (0.00-1.00) K/uL Eos # (Auto) 0.10 (0.00-0.50) K/uL Baso # (Auto) 0.01 (0.00-0.20) K/uL PT 17.4 H (9.8-11.7) SEC INR 1.6 APTT 30.4 H (22.1-29.8) SEC Sodium 136 (136-145) mmol/L Potassium 3.7 (3.5-5.1) mmol/L Chloride 102 (98-107) mmol/L Carbon Dioxide 26.5 (21.0-32.0) mmol/L BUN 4 L (7-18) mg/dL Creatinine 0.76 (0.51-1.17) mg/dL Est Cr Clr Drug Dosing 115.72 mL/min Estimated GFR (MDRD) > 60 mL/min Glucose 103 (74-106) mg/dL Calcium 8.7 (8.5-10.1) mg/dL Iron (50-175) ug/dL TIBC (250-450) ug/dL % Saturation Total Bilirubin 1.2 H (0.2-1.0) mg/dL AST 61 H (15-37) U/L ALT 55 (12-78) U/L Alkaline Phosphatase 86 (46-116) IU/L Total Protein 7.1 (6.4-8.2) g/dL Albumin 2.9 L (3.4-5.0) g/dL Vitamin B12 624 (193-986) pg/mL Folate 20.7 (8.6-58.9) ng/mL 09/07/17 Range/Units 07:15 WBC (4.0-10.2) K/uL RBC (4.33-5.41) M/uL Hgb (13.1-16.8) g/dL Hct (39.0-49.0) % MCV (84.0-98.0) fL MCH (28.2-33.3) pg MCHC (31.7-36.0) g/dL RDW (11.2-14.1) % Plt Count (150-350) K/uL Neut % (Auto) (45.0-80.0) % Lymph % (Auto) (10.0-50.0) % [place] % (Auto) (2.0-14.0) % Eos % (Auto) (0.0-5.0) % Baso % (Auto) (0.0-2.0) % Neut # (Auto) (1.40-7.00) K/uL Lymph # (Auto) (0.50-3.50) K/uL [place] # (Auto) (0.00-1.00) K/uL Eos # (Auto) (0.00-0.50) K/uL Baso # (Auto) (0.00-0.20) K/uL PT (9.8-11.7) SEC INR APTT (22.1-29.8) SEC Sodium (136-145) mmol/L Potassium (3.5-5.1) mmol/L Chloride (98-107) mmol/L Carbon Dioxide (21.0-32.0) mmol/L BUN (7-18) mg/dL Creatinine (0.51-1.17) mg/dL Est Cr Clr Drug Dosing mL/min Estimated GFR (MDRD) mL/min Glucose (74-106) mg/dL Calcium (8.5-10.1) mg/dL Iron 112 (50-175) ug/dL TIBC 318 (250-450) ug/dL % Saturation 35.09063 Total Bilirubin (0.2-1.0) mg/dL AST (15-37) U/L ALT (12-78) U/L Alkaline Phosphatase (46-116) IU/L Total Protein (6.4-8.2) g/dL Albumin (3.4-5.0) g/dL Vitamin B12 (193-986) pg/mL Folate (8.6-58.9) ng/mL Med Orders - Current: Current Medications Acetaminophen (Tylenol) 650 mg PO Q4H PRN PRN Reason: fever/pain Last Admin: 09/06/17 03:19 Dose: 650 mg Diltiazem HCl (Cardizem Cd) 360 mg PO DAILY [facility] Last Admin: 09/07/17 08:52 Dose: 360 mg Diphenhydramine HCl (Benadryl) 50 mg IVPUSH ONETIME PRN PRN Reason: allergic Reaction Diphenhydramine HCl (Benadryl) 50 mg PO Q4H PRN PRN Reason: Allergies Last Admin: 09/06/17 21:04 Dose: 50 mg Diphenoxylate HCl/Atropine (Lomotil 0.025-2.5 Mg) 1 tab PO QID PRN PRN Reason: Diarrhea Sodium Chloride (Normal Saline) 1,000 mls @ 100 mls/hr IV ASDIRECTED [facility] Last Admin: 09/07/17 00:58 Dose: 100 mls/hr Lorazepam (Ativan) 1 mg PO Q6H PRN PRN Reason: Alcohol Withdrawl/Anxiety Last Admin: 09/07/17 01:03 Dose: 1 mg Lorazepam (Ativan) 0.5 mg PO Q6H PRN PRN Reason: Delirium tremors Metronidazole (Flagyl) 500 mg PO Q8H [facility] Last Admin: 09/07/17 08:59 Dose: 500 mg Multivitamins/Minerals/Vitamin C (Tab-A-Darion) 1 tab PO DAILY [facility] Last Admin: 09/07/17 08:52 Dose: 1 tab Niacin (Niacin) 500 mg PO BEDTIME [facility] Last Admin: 09/06/17 19:21 Dose: 500 mg Ondansetron HCl (Zofran) 4 mg IVPUSH Q4H PRN PRN Reason: Nausea/Vomiting Sodium Chloride (Saline Flush) 10 ml FLUSH ASDIRECTED PRN PRN Reason: Keep Vein Open Last Admin: 09/04/17 21:23 Dose: 10 ml Thiamine HCl (Vitamin B-1) 100 mg PO BEDTIME [facility] Last Admin: 09/06/17 19:21 Dose: 100 mg Warfarin Sodium (Coumadin) 5 mg PO DAILY@1800 [facility] Last Admin: 09/06/17 17:09 Dose: 5 mg Discontinued Medications Diltiazem HCl (Cardizem Cd) 360 mg PO DAILY [facility] Diphenhydramine HCl (Benadryl) 50 mg IVPUSH ONETIME ONE Stop: 09/04/17 20:43 Last Admin: 09/04/17 20:40 Dose: 50 mg Metronidazole 500 mg/ Premix 100 mls @ 100 mls/hr IV Q8H [facility] Last Admin: 09/06/17 09:06 Dose: 100 mls/hr Lorazepam (Ativan) 1 mg IVPUSH Q6H PRN PRN Reason: Alcohol Withdrawl/Anxiety Last Admin: 09/04/17 21:23 Dose: 1 mg Warfarin Sodium (Coumadin) 5 mg PO DAILY [facility] - Exam General: Alert, Oriented, Cooperative HEENT: Pupils Equal, Pupils Reactive, EOMI, Mucous Membr. Moist/[place] Neck: Supple Lungs: Clear to Auscultation, Normal Respiratory Effort Cardiovascular: Irregular Rhythm GI/Abdominal Exam: Normal Bowel Sounds, Soft, Non-Tender, No Organomegaly, No Distention, No Abnormal Bruit, No Mass, Pelvis Stable (Male) Exam: No Hernia, Normal Inspection, Normal Prostate, Circumcised Back Exam: Normal Inspection, Full Range of Motion Extremities: Normal Inspection, Normal Range of Motion, Non-Tender, No Pedal Edema, Normal Capillary Refill Skin: Warm, Dry, Intact Neurological: No New Focal Deficit Psy/Mental Status: Anxious, Agitated, Withdrawal Symptoms - Problem List & Annotations (1) Gastroenteritis due to Clostridium difficile SNOMED Code(s): 523834698, 718760118 Code(s): A04.72 - ENTEROCOLITIS D/T CLOSTRIDIUM DIFFICILE, NOT SPCF RECUR Status: Acute Current Visit: Yes Annotation/Comment:: Pending results of C. difficile will continue on antibiotic (2) Alcohol withdrawal SNOMED Code(s): 884126144 Code(s): F10.239 - ALCOHOL DEPENDENCE WITH WITHDRAWAL, UNSPECIFIED Status: Chronic Priority: Medium Current Visit: Yes Qualifiers: Complication of substance-induced condition: uncomplicated Qualified Code(s ): F10.230 - Alcohol dependence with withdrawal, uncomplicated Annotation/Comment:: Known history of alcohol abuse and dependency DVTs improving. (3) Alcohol withdrawal delirium SNOMED Code(s): 6233769 Code(s): F10.231 - ALCOHOL DEPENDENCE WITH WITHDRAWAL DELIRIUM Status: Acute Current Visit: Yes Annotation/Comment:: Patient has shown signs of alcohol withdrawal with shakes vasoactive hives patient was started on Ativan which control symptoms (4) Thrombocytopenia concurrent with and due to alcoholism SNOMED Code(s): 77370550490325 Code(s): D69.59 - OTHER SECONDARY THROMBOCYTOPENIA; F10.20 - ALCOHOL DEPENDENCE, UNCOMPLICATED Status: Acute Current Visit: Yes Annotation/ Comment:: At this time I discussed with extrusion line operator at [facility] who agrees that his thrombocytopenia is secondary to alcoholism and that it would be safe for him to go home once we have his C. difficile under control - Problem List Review Problem List Initiated/Reviewed/Updated: Yes - My Orders Last 24 Hours: My Active Orders 09/11/17 18:30 Isolation [COMM] Routine - Assessment Assessment:: As above Plan is to discharge him or today or tomorrow depending on results - Plan Plan:: As above. Extensive precautions were given to the patient, who is in agreement with the treatment plan. Dr. Victoria resumes care in the a.m. Probable hospital discharge within the next 1?2 days. Patient was instructed on all call abuse and the need for alcohol treatment since all his problems are caused by alcohol
--- NOTE | 2017-09-07 13:02 | PCM.DCSUM1 ---
Discharge Summary - Hospital Course Free Text/Narrative:: C diff came back negative. Diarrhea improving. Patient ready to go home. Denies nausea and vomiting. Patient has had DTs but now stable. Spoke with oncologist and states that the thrombocytopenia can be secondary to alcoholism. Can be sent home on regular meds. Will send home on Ativan 1/2 mg twice a day x 1 days. Then ativan 1/2 mg daily for 3 days. Follow up with primary provider on Wednesday. Diagnosis: Stroke: No - Discharge Data Discharge Date: 09/07/17 Discharge Disposition: Home, Self-Care 01 Condition: Good - Discharge Diagnosis/Problem(s) (1) Gastroenteritis due to Clostridium difficile SNOMED Code(s): 325121824, 021572071 ICD Code: A04.72 - ENTEROCOLITIS D/T CLOSTRIDIUM DIFFICILE, NOT SPCF RECUR Status: Acute Current Visit: Yes Problem Details: C diff negative (2) Alcohol withdrawal SNOMED Code(s): 679133112 ICD Code: F10.239 - ALCOHOL DEPENDENCE WITH WITHDRAWAL, UNSPECIFIED Status : Chronic Priority: Medium Current Visit: Yes Problem Details: Known history of alcohol abuse and dependency DVTs improving. Qualifiers: Complication of substance-induced condition: uncomplicated Qualified Code(s ): F10.230 - Alcohol dependence with withdrawal, uncomplicated (3) Alcohol withdrawal delirium SNOMED Code(s): 4894687 ICD Code: F10.231 - ALCOHOL DEPENDENCE WITH WITHDRAWAL DELIRIUM Status: Acute Current Visit: Yes Problem Details: Patient has shown signs of alcohol withdrawal with shakes vasoactive hives patient was started on Ativan which control symptoms Will be sent home on Ativan (4) Thrombocytopenia concurrent with and due to alcoholism SNOMED Code(s): 05567765168498 ICD Code: D69.59 - OTHER SECONDARY THROMBOCYTOPENIA; F10.20 - ALCOHOL DEPENDENCE, UNCOMPLICATED Status: Acute Current Visit: Yes Problem Details : At this time I discussed with chemist at [facility] who agrees that his thrombocytopenia is secondary to alcoholism and that it would be safe for him to go home C diff negative - Patient Instructions Diet: Usual Diet as Tolerated Activity: As Tolerated Driving: Do Not Drive Other/Special Instructions: Do not drink alcohol. Refer to [facility] for Alcohol treament or AA - Discharge Plan *PRESCRIPTION DRUG MONITORING PROGRAM REVIEWED*: Not Applicable *COPY OF PRESCRIPTION DRUG MONITORING REPORT IN PATIENT CASSANDRA: Not Applicable Prescriptions/Med Rec: LORazepam [Ativan] 0.5 mg PO ASDIRECTED #5 tablet Niacin 500 mg PO BEDTIME #30 tablet Thiamine [Vitamin B-1] 100 mg PO BEDTIME #30 tablet Home Medications: Home Meds Multivitamin [Daily Multiple Vitamin] 1 tab PO DAILY 08/24/13 [History] Diltiazem [Cardizem CD] 360 mg PO DAILY 09/04/17 [History] Warfarin [Coumadin] 5 mg PO DAILY 09/04/17 [History] LORazepam [Ativan] 0.5 mg PO ASDIRECTED #5 tablet 09/07/17 [Rx] Niacin 500 mg PO BEDTIME #30 tablet 09/07/17 [Rx] Thiamine [Vitamin B-1] 100 mg PO BEDTIME #30 tablet 09/07/17 [Rx] Forms: ED Department Discharge Referrals: Arden Hernandez PA [Primary Care Provider] - (Follow up for post hospitalization on WednesdaySeptember 10 ) Human Services, [facility] [Other] (Referral for Alcohol Treatment or AA ) - Discharge Summary/Plan Comment DC Time >30 min.: No - General Info Date of Service: 09/07/17 - Review of Systems General: Reports: No Symptoms HEENT: Reports: No Symptoms Pulmonary: Reports: No Symptoms Cardiovascular: Reports: No Symptoms Gastrointestinal: Reports: Diarrhea (improving ), Flatus. Denies: Constipation , Nausea, Vomiting Genitourinary: Reports: No Symptoms Musculoskeletal: Reports: No Symptoms Skin: Reports: No Symptoms Neurological: Reports: No Symptoms Psychiatric: Reports: No Symptoms - Patient Data Vitals - Most Recent: Last Vital Signs Temp 98.3 F 09/07/17 12:00 Pulse 96 09/07/17 12:00 Resp 18 09/07/17 12:00 BP 125/84 09/07/17 12:00 Pulse Ox 97 09/07/17 12:00 Weight - Most Recent: 254 lb I&O - Last 24 hours: Intake & Output 09/06/17 09/07/17 09/07/17 22:59 06:59 14:59 Intake Total 6597 972 600 Output Total 450 Balance 1607 972 600 Lab Results - Last 24 hrs: Laboratory Results - last 24 hr 09/07/17 09/07/17 09/07/17 Range/Units 07:15 07:15 07:15 WBC 4.2 (4.0-10.2) K/uL RBC 3.87 L (4.33-5.41) M/uL Hgb 11.7 L (13.1-16.8) g/dL Hct 34.6 L (39.0-49.0) % MCV 89.4 (84.0-98.0) fL MCH 30.2 (28.2-33.3) pg MCHC 33.8 (31.7-36.0) g/dL RDW 15.0 H (11.2-14.1) % Plt Count 32 L* (150-350) K/uL Neut % (Auto) 60.8 (45.0-80.0) % Lymph % (Auto) 25.6 (10.0-50.0) % Grainger % (Auto) 11.0 (2.0-14.0) % Eos % (Auto) 2.4 (0.0-5.0) % Baso % (Auto) 0.2 (0.0-2.0) % Neut # (Auto) 2.54 (1.40-7.00) K/uL Lymph # (Auto) 1.07 (0.50-3.50) K/uL Grainger # (Auto) 0.46 (0.00-1.00) K/uL Eos # (Auto) 0.10 (0.00-0.50) K/uL Baso # (Auto) 0.01 (0.00-0.20) K/uL PT 17.4 H (9.8-11.7) SEC INR 1.6 APTT 30.4 H (22.1-29.8) SEC Sodium 136 (136-145) mmol/L Potassium 3.7 (3.5-5.1) mmol/L Chloride 102 (98-107) mmol/L Carbon Dioxide 26.5 (21.0-32.0) mmol/L BUN 4 L (7-18) mg/dL Creatinine 0.76 (0.51-1.17) mg/dL Est Cr Clr Drug Dosing 115.72 mL/min Estimated GFR (MDRD) > 60 mL/min Glucose 103 (74-106) mg/dL Calcium 8.7 (8.5-10.1) mg/dL Iron (50-175) ug/dL TIBC (250-450) ug/dL % Saturation Total Bilirubin 1.2 H (0.2-1.0) mg/dL AST 61 H (15-37) U/L ALT 55 (12-78) U/L Alkaline Phosphatase 86 (46-116) IU/L Total Protein 7.1 (6.4-8.2) g/dL Albumin 2.9 L (3.4-5.0) g/dL Vitamin B12 624 (193-986) pg/mL Folate 20.7 (8.6-58.9) ng/mL 09/07/17 Range/Units 07:15 WBC (4.0-10.2) K/uL RBC (4.33-5.41) M/uL Hgb (13.1-16.8) g/dL Hct (39.0-49.0) % MCV (84.0-98.0) fL MCH (28.2-33.3) pg MCHC (31.7-36.0) g/dL RDW (11.2-14.1) % Plt Count (150-350) K/uL Neut % (Auto) (45.0-80.0) % Lymph % (Auto) (10.0-50.0) % Grainger % (Auto) (2.0-14.0) % Eos % (Auto) (0.0-5.0) % Baso % (Auto) (0.0-2.0) % Neut # (Auto) (1.40-7.00) K/uL Lymph # (Auto) (0.50-3.50) K/uL Grainger # (Auto) (0.00-1.00) K/uL Eos # (Auto) (0.00-0.50) K/uL Baso # (Auto) (0.00-0.20) K/uL PT (9.8-11.7) SEC INR APTT (22.1-29.8) SEC Sodium (136-145) mmol/L Potassium (3.5-5.1) mmol/L Chloride (98-107) mmol/L Carbon Dioxide (21.0-32.0) mmol/L BUN (7-18) mg/dL Creatinine (0.51-1.17) mg/dL Est Cr Clr Drug Dosing mL/min Estimated GFR (MDRD) mL/min Glucose (74-106) mg/dL Calcium (8.5-10.1) mg/dL Iron 112 (50-175) ug/dL TIBC 318 (250-450) ug/dL % Saturation 35.80281 Total Bilirubin (0.2-1.0) mg/dL AST (15-37) U/L ALT (12-78) U/L Alkaline Phosphatase (46-116) IU/L Total Protein (6.4-8.2) g/dL Albumin (3.4-5.0) g/dL Vitamin B12 (193-986) pg/mL Folate (8.6-58.9) ng/mL SUE Results - Last 24 hrs: Microbiology 09/04/17 16:13 Clostridium difficile (PCR) - Final Stool / Feces 09/04/17 09:00 Shiga Toxin I & II - Final Stool / Feces Med Orders - Current: Current Medications Acetaminophen (Tylenol) 650 mg PO Q4H PRN PRN Reason: fever/pain Last Admin: 09/06/17 03:19 Dose: 650 mg Diltiazem HCl (Cardizem Cd) 360 mg PO DAILY [facility] Last Admin: 09/07/17 08:52 Dose: 360 mg Diphenhydramine HCl (Benadryl) 50 mg IVPUSH ONETIME PRN PRN Reason: allergic Reaction Diphenhydramine HCl (Benadryl) 50 mg PO Q4H PRN PRN Reason: Allergies Last Admin: 09/06/17 21:04 Dose: 50 mg Diphenoxylate HCl/Atropine (Lomotil 0.025-2.5 Mg) 1 tab PO QID PRN PRN Reason: Diarrhea Lorazepam (Ativan) 1 mg PO Q6H PRN PRN Reason: Alcohol Withdrawl/Anxiety Last Admin: 09/07/17 01:03 Dose: 1 mg Lorazepam (Ativan) 0.5 mg PO Q6H PRN PRN Reason: Delirium tremors Metronidazole (Flagyl) 500 mg PO Q8H [facility] Last Admin: 09/07/17 08:59 Dose: 500 mg Multivitamins/Minerals/Vitamin C (Tab-A-Darion) 1 tab PO DAILY [facility] Last Admin: 09/07/17 08:52 Dose: 1 tab Niacin (Niacin) 500 mg PO BEDTIME [facility] Last Admin: 09/06/17 19:21 Dose: 500 mg Ondansetron HCl (Zofran) 4 mg IVPUSH Q4H PRN PRN Reason: Nausea/Vomiting Sodium Chloride (Saline Flush) 10 ml FLUSH ASDIRECTED PRN PRN Reason: Keep Vein Open Last Admin: 09/04/17 21:23 Dose: 10 ml Thiamine HCl (Vitamin B-1) 100 mg PO BEDTIME [facility] Last Admin: 09/06/17 19:21 Dose: 100 mg Warfarin Sodium (Coumadin) 5 mg PO DAILY@1800 [facility] Last Admin: 09/06/17 17:09 Dose: 5 mg Discontinued Medications Diltiazem HCl (Cardizem Cd) 360 mg PO DAILY [facility] Diphenhydramine HCl (Benadryl) 50 mg IVPUSH ONETIME ONE Stop: 09/04/17 20:43 Last Admin: 09/04/17 20:40 Dose: 50 mg Metronidazole 500 mg/ Premix 100 mls @ 100 mls/hr IV Q8H [facility] Last Admin: 09/06/17 09:06 Dose: 100 mls/hr Sodium Chloride (Normal Saline) 1,000 mls @ 100 mls/hr IV ASDIRECTED [facility] Last Admin: 09/07/17 00:58 Dose: 100 mls/hr Lorazepam (Ativan) 1 mg IVPUSH Q6H PRN PRN Reason: Alcohol Withdrawl/Anxiety Last Admin: 09/04/17 21:23 Dose: 1 mg Warfarin Sodium (Coumadin) 5 mg PO DAILY [facility] - Exam General: Reports: Alert, Oriented HEENT: Reports: Pupils Equal, Pupils Reactive, EOMI, Mucous Membr. Moist/[place] Neck: Reports: Supple Lungs: Reports: Clear to Auscultation, Normal Respiratory Effort Cardiovascular: Reports: Regular Rate, Regular Rhythm GI/Abdominal Exam: Normal Bowel Sounds, Soft, Non-Tender, No Organomegaly, No Distention, No Abnormal Bruit, No Mass, Pelvis Stable (Male) Exam: Deferred Rectal (Males) Exam: Deferred Back Exam: Reports: Normal Inspection, Full Range of Motion Extremities: Normal Inspection, Normal Range of Motion, Non-Tender, No Pedal Edema, Normal Capillary Refill Skin: Reports: Warm, Dry, Intact Neurological: Reports: No New Focal Deficit Psy/Mental Status: Reports: Alert, Normal Affect, Normal Mood, Withdrawal Symptoms (vasomotor - will be sent home on ativan) *Q Meaningful Use (DIS) - VTE *Q VTE Anticoagulation Contraindications: Alternative [place] Request PT
== END 2017-09-07 14:45 | disposition home or self-care (01) | DRG 372 ==
LOC: LL.ED 13:31 → LL.MS 16:15
PROVIDERS: ADMIT Family Medicine; ATTEND Family Medicine
DX: A04.72 Enterocolitis due to Clostridium difficile, not specified as recurrent (principal); F10.231 Alcohol dependence with withdrawal delirium; E87.1 Hypo-osmolality and hyponatremia; I48.91 Unspecified atrial fibrillation; B18.2 Chronic viral hepatitis C; D64.9 Anemia, unspecified; I10 Essential (primary) hypertension; E78.5 Hyperlipidemia, unspecified; J30.2 Other seasonal allergic rhinitis; D69.6 Thrombocytopenia, unspecified; Z79.01 Long term (current) use of anticoagulants; Z79.899 Other long term (current) drug therapy; Z87.891 Personal history of nicotine dependence
CPT/HCPCS: 36415; 80048; 80053; 82607; 82746; 83540; 83550; 85025; 85610; 85730; 87045; 87046; 87493; 87899; 93005; 99285; A9270-GY; J1200; J2060; J3490; J7030; J7050